=== PATIENT | female | born 1985 | race American Indian/Alaskan Native ===

== ENCOUNTER 2017-10-26 23:29 | Emergency (ER) | payer MEDICAID ==
[2017-10-27 01:17] VITALS: BP 121/78
[2017-10-27 02:19] LABS: Basophils % (Auto) 0.4 % (0.0-1.8); Eosinophils # (Auto) 0.2 K/mm3 (0.0-0.4); Eosinophils % (Auto) 2.6 % (0.0-4.3); Hemoglobin 12.4 gm/dl (10.1-14.3); Lymphocytes # (Auto) 1.7 K/mm3 (1.2-5.4); Lymphocytes % (Auto) 22.5 % (13.4-35.0); Mean Corpuscular HGB Conc 34 % (30-34); Mean Corpuscular Hemoglobin 30 pg (28-32); Mean Corpuscular Volume 88 fl (79-97); Monocytes # (Auto) 0.6 K/mm3 (0.0-0.8); Monocytes % (Auto) 8.6 % (0.0-7.3); Platelet Count 228 K/mm3 (140-440); Red Cell Distribution Width 13.7 % (13.2-15.2)
--- NOTE | 2017-10-27 03:29 | Ultrasound Report ---
FINAL REPORT PROCEDURE: US OB < = 14 WEEKS FETUS TECHNIQUE: Real-time transabdominal sonography of the uterus, placenta, amniotic fluid, adnexa, and fetus was performed with image documentation. Measurements were obtained to determine age/size. M-mode Doppler was used to document heartbeat. CPT 71148 HISTORY: VAGINAL BLEEDING COMPARISON: No prior studies are available for comparison. FINDINGS: CRL: 73 mm, which corresponds to a gestational age of: 13 weeks, 3 days. Yolk Sac: Normal. Embryonic Cardiac Activity: 166 beats per minute Gestational Sac: Normal. Amniotic fluid: Normal. Cervix: Normal. Right Ovary: Normal. Left Ovary: Normal. Estimated delivery date: 05/01/2018 Uterus and adnexa: Normal. IMPRESSION: Single live intrauterine gestation at approximately 13 weeks 3 days. EDC by US 05/01/2018
== END 2017-10-27 02:54 | disposition left against medical advice (07) ==
LOC: ED 23:29
DX: O20.9 Hemorrhage in early pregnancy, unspecified (principal); O26.891 Other specified pregnancy related conditions, first trimester; R10.2 Pelvic and perineal pain; Z3A.00 Weeks of gestation of pregnancy not specified; Z53.21 Procedure and treatment not carried out due to patient leaving prior to being seen by health care provider
CPT/HCPCS: 36415; 76801; 84702; 85025; 86850; 86900; 86901

== ENCOUNTER 2018-03-24 13:14 | Outpatient (CLI) | payer MEDICAID ==
[2018-03-24 13:51] LABS: Hematocrit 38.5 % (30.3-42.9); Mean Corpuscular HGB Conc 34 % (30-34); Mean Corpuscular Hemoglobin 30 pg (28-32); Mean Corpuscular Volume 88 fl (79-97); Platelet Count 189 K/mm3 (140-440); Red Blood Count 4.36 M/mm3 (3.65-5.03); Red Cell Distribution Width 14.6 % (13.2-15.2)
[2018-03-24 14:11] LABS: Alanine Aminotransferase 23 units/L (7-56); Uric Acid 5.2 mg/dL (3.5-7.6)
[2018-03-24] MEDS ORDERED: LACTATED RINGERS 500 ML IV ONE (14:39)
[2018-03-24 14:51] VITALS: BP 115/61
[2018-03-24 17:18] LABS: Bilirubin,Urine NEG (Negative); Blood,Urine NEG (Negative); Calcium Oxalate Crystals,Urine 1+; Color,Urine Yellow (Yellow); Mucus,Urine FEW /HPF
[2018-03-26 11:56] LABS: Creatinine,Urine 50.8 mg/dL (0.1-20.0)
[2018-03-26 12:10] LABS: Creatinine 24 Hour,Urine 1.6 (0.8-2.8)
== END 2018-03-24 16:15 | disposition home or self-care (01) ==
LOC: TRG 13:14
PROVIDERS: ATTEND Obstetrics & Gynecology
DX: O47.03 False labor before 37 completed weeks of gestation, third trimester (principal); O10.013 Pre-existing essential hypertension complicating pregnancy, third trimester; Z3A.34 34 weeks gestation of pregnancy
CPT/HCPCS: 36415; 59025; 81001; 82565; 83615; 84450; 84460; 84550; 85027